=== PATIENT | male | born 1985 | race Caucasian/White ===

== ENCOUNTER 2016-11-03 08:46 | Emergency (ER) | payer MEDICAID, OTHER ==
[2016-11-03 08:54] VITALS: BP 128/74; PULSE 82; RESP 16; TEMP 98.4; O2SAT 94
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
== END 2016-11-03 09:30 | disposition home or self-care (01) ==
DX: J06.9 Acute upper respiratory infection, unspecified (principal)

== ENCOUNTER 2018-10-31 19:55 | Emergency (ER) | payer MEDICAID ==
[2018-10-31 20:02] VITALS: BP 144/90
[2018-10-31] MEDS ORDERED: LIDOCAINE 4%/MENTHOL 1% PATCH TD ONE (20:53)
[2018-10-31] MEDS ORDERED: HYDROCOD/APAP 5/325 PREPACK#6 BTL TAKEHOME ONE (20:53)
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
[2018-10-31] MEDS ORDERED: PATCH REMOVAL 1 EA PATCH TD SCH (21:00)
== END 2018-10-31 21:15 | disposition home or self-care (01) ==
DX: G56.01 Carpal tunnel syndrome, right upper limb (principal); E03.9 Hypothyroidism, unspecified; F43.10 Post-traumatic stress disorder, unspecified; F32.9 Major depressive disorder, single episode, unspecified

== ENCOUNTER 2018-11-05 13:51 | Emergency (ER) | payer MEDICAID ==
[2018-11-05 13:56] VITALS: BP 141/88
--- NOTE | 2018-11-05 14:14 | EDPHY ---
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 He was seen the ER few days ago , given Voltaren gel. Today is Monday. He has an appointment with Dr. Edilia connelly on Monday. He comes he comes to the ER today hoping he can get a peripheral nerve block. He already has a volar splint which has been wearing. PHYSICAL EXAM (Prior to examination, patient consented to physical exam, hands were washed and my usual and customary physical exam procedures followed) 1) GENERAL: Well-developed, well-nourished, alert and oriented. Appears to be in no acute distress. 2) HEAD: Normocephalic 3) HEENT: Pupils equal, round, reactive to light bilaterally. 4) LUNGS: Breathing comfortably. 5) MUSCULOSKELETAL: Soft compartments. Normal coloration. 6) SKIN: Intact 7) VASCULAR: pulses and cap refill present are brisk 8) NEUROLOGIC: Positive Tinel. Positive Phalen sign. Radial, ulnar, median nerve function intact with no deficits appreciated on exam DIFFERENTIAL DIAGNOSIS: in no particular order including but not limited to fracture, sprain, compartment syndrome, neurapraxia Smoking Status: Never smoked Constitutional: Initial Vital Signs Temperature (C) 37 C 11/05/18 13:53 Heart Rate 77 11/05/18 13:53 Respiratory Rate 16 11/05/18 13:53 Blood Pressure 141/88 H 11/05/18 13:53 O2 Sat (%) 97 11/05/18 13:53 O2 Delivery Mode Room Air Allergies/Adverse Reactions: amitriptyline Allergy (Verified 10/31/18 20:02) Home Medications: Medication Instructions Recorded Levothyroxine 11/03/16 Diclofenac Sodium 1% [Voltaren Gel 4 gm TP Q8HRS #1 tube 10/31/18 (*)] Duloxetine HCl [Cymbalta] 30 mg PO 10/31/18 Lidocaine [Lidoderm] 1 each TP BID #30 adh..patch 11/05/18 MDM/Departure - MDM Medications Given: Discontinued Medications Miscellaneous Medication (Icy Hot Lidocaine/Menthol 4%/1% Patch) 1 patch TD EDNOW ONE Stop: 11/05/18 14:18 Last Admin: 11/05/18 14:22 Dose: 1 patch ED Course/Re-evaluation: This time I do not identify indication for emergent hand surgery consultation or imaging studies. His no neuro deficits. Positive Tinel and Phalen sign. He was come to the ER hoping that he could get a peripheral nerve block. I have recommend he keep his appointment in [address] Frye. In the meantime I have offered analgesia however he declines opiates. I have offered lidocaine patch which he accepts. Discharged appearing well. Patient feels comfortable being discharged. All questions and concerns addressed by myself. Patient given my usual and customary discharge precautions and instructions regarding their clinical impression. Care of patient under supervision of secondary supervising physician Dr Alex . - Depart Disposition: Home, Routine, Self-Care Clinical Impression: Carpal tunnel syndrome Qualifiers: Laterality: right Qualified Code(s): G56.01 - Carpal tunnel syndrome, right upper limb Condition: Good Instructions: Paresthesia (ED) Additional Instructions: Return to the ER if you develop new or worsening symptoms. Please wear your splint as directed. Prescriptions: Lidocaine [Lidoderm] 1 each TP BID #30 adh..patch Referrals: Castro Frye MD [Medical Doctor] - 11/07/18
[2018-11-05] MEDS ORDERED: LIDOCAINE 4%/MENTHOL 1% PATCH TD ONE (14:17)
[2018-11-05] MEDS ORDERED: PATCH REMOVAL 1 EA PATCH TD SCH (21:00)
== END 2018-11-05 14:30 | disposition home or self-care (01) ==
DX: G56.01 Carpal tunnel syndrome, right upper limb (principal)

== ENCOUNTER → 2018-11-12 | Outpatient (CLI) | payer MEDICAID | LOC: FIMAGING 14:46 | PROVIDERS: ATTEND Orthopaedic Surgery Hand Surgery | DX: S63.591A Other specified sprain of right wrist, initial encounter (principal); M65.88 Other synovitis and tenosynovitis, other site ==